=== PATIENT | female | born 1975 | race Two or more races ===

== ENCOUNTER 2017-07-31 09:17 | Emergency (ER) | payer OTHER, MEDICAID ==
[~2017-07-31] VITALS: Ht 162.6 cm; Wt 63.5 kg
[2017-07-31] MEDS ORDERED: DIPHTH,PERTUSS(ACELL),TET TOX 0.5 ML DISP.SYRIN. VAX IM ONE (09:30)
[2017-07-31] MEDS ORDERED: CYCLOBENZAPRINE 10 MG TABLET. PO ONE (09:30)
[2017-07-31] MEDS ORDERED: HYDROcodone/APAP 5/325MG 1 TAB TABLET PO ONE (09:30)
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
[2017-07-31 10:13] VITALS: BP 156/83
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
[2017-07-31] MEDS ORDERED: CYCL10TA2 PO (11:58)
[2017-07-31] MEDS ORDERED: NAPR-695 PO (11:58)
== END 2017-07-31 12:05 | disposition home or self-care (01) ==
LOC: ER 09:17
DX: S16.1XXA Strain of muscle, fascia and tendon at neck level, initial encounter (principal); S00.03XA Contusion of scalp, initial encounter; S30.0XXA Contusion of lower back and pelvis, initial encounter; S20.221A Contusion of right back wall of thorax, initial encounter; M25.562 Pain in left knee; M25.511 Pain in right shoulder; M25.532 Pain in left wrist; V43.62XA Car passenger injured in collision with other type car in traffic accident, initial encounter; Y93.89 Activity, other specified; Y92.410 Unspecified street and highway as the place of occurrence of the external cause; Y99.8 Other external cause status
CPT/HCPCS: 70450; 71010; 72125; 72128; 72131; 73030; 73521; 73564; 99284-25